=== PATIENT | female | born 1965 | race Caucasian/White ===

== ENCOUNTER → 2017-05-03 | Outpatient (CLI) | payer OTHER ==
[2017-05-03 16:04] VITALS: BP 152/77; PULSE 83; RESP 16; TEMP 97.7; BMI 39.4
[2017-05-03 18:05] LABS: HCT 46.2 % (34.0-46.0); MCH 30.4 pg (25.0-35.0); MCHC 32.6 g/dL (31.0-37.0); MCV 93.3 fL (80.0-100.0); Mean Platelet Volume 7.7; Platelet Count 331 k/uL (150-450); RBC 4.95 m/uL (3.80-5.40); RDW 14.1 % (11.5-15.5); WBC 10.1 k/uL (3.8-10.6)
[2017-05-03 18:20] LABS: ALT 33 U/L (9-52); AST 20 U/L (14-36); Albumin 4.1 g/dL (3.5-5.0); Alkaline Phosphatase 93 U/L (38-126); Anion Gap 10 mmol/L; Blood Urea Nitrogen 14 mg/dL (7-17); Carbon Dioxide 27 mmol/L (22-30); Chloride 103 mmol/L (98-107); Cholesterol 202 mg/dL (<200); Glucose 89 mg/dL (74-99); HDL Cholesterol 47 mg/dL (40-60); LDL Cholesterol,Calculated 139 mg/dL (0-99); Potassium 3.9 mmol/L (3.5-5.1); Sodium 140 mmol/L (137-145); Total Bilirubin 0.5 mg/dL (0.2-1.3); Total Protein 7.1 g/dL (6.3-8.2); Triglycerides 81 mg/dL (<150)
[2017-05-04 01:24] LABS: Iron Saturation 15.93 (12.00-45.00)
[2017-05-04 01:31] LABS: Vitamin D 25 Hydroxy 24.5 ng/mL (30.0-100.0)
[2017-05-04 01:34] LABS: Folate, Serum 16.8 ng/mL
[2017-05-04 01:48] LABS: Hemoglobin A1C 5.9 % (4.0-6.0)
--- NOTE | 2017-06-13 23:16 | P.HPBAR ---
Bariatric H&P - History & Physicial H&P Date: 05/03/17 History & Physicial: Visit/CC: bariatric consult (sleeve) Patient initial contact: Initial weight: 109.316 kg Initial weight in pounds: 241.00 Height: 5 ft 5.5 in Initial BMI: 39.4 Last weight: Current weight: 109.316 kg Current weight in pounds: 241.00 Current BMI: 39.4 [place] body weight (based on NIH guidelines): 57.833 kg Excess body weight loss: 0.0% The patient is a 51 year-old F who presents for Bariatric Assessment. DATE OF SERVICE: 05/03/2017 REASON FOR CONSULTATION: Initial bariatric evaluation. HISTORY OF PRESENT ILLNESS: HISTORY OF PRESENT ILLNESS: Nabila Austin is a 51- year-old female who comes in with history of morbid obesity. At present she is looking into the sleeve gastrectomy. At height of 5 feet and 5.5 inches, her ideal body weight is 149 pounds. She comes in weighing 240 pounds. Body mass index of 39.5. She has been undergoing medical supervised weight loss and has already lost 10 pounds. Her highest personal weight is at present. Her goal is to get down to 150 pounds. She denies any family history stomach or esophageal cancer. No family history of inflammatory bowel disease. She denies any focal ALLERGIES. No personal or family history of DVT. She still has her gallbladder. She reports as a result of obesity she has developed low back pain. She also developed hypertension. She reports minimal social support with limited family members exposed to weight loss procedures. She also reports past history of using Adipex for dieting and lost 25 pounds however regained her weight. At height of 5.5 inches, she is 240 pounds. Body mass index of 39.5. She is 91 pounds overweight. PAST MEDICAL HISTORY: 1. Morbid obesity. 2. Body mass index of 39.5 3. Osteoarthritis of the knees. 4. Osteoarthritis of the hips. 5. Osteoarthritis of the lower back. 6. Obstructive sleep apnea. 7. Hypertensive heart disease. 8. Hypothyroidism. PAST SURGICAL HISTORY: No abdominal surgeries. HOME MEDICATIONS: 1. Etodolac. 2. Levothyroxine. 3. Triamterene hydrochlorothiazide. 4. Hydrodiuril ALLERGIES: Codeine. SOCIAL HISTORY: No active tobacco use. FAMILY HISTORY: No family history of ulcerative colitis disease or Crohn's disease. Family history of morbid obesity. No lupus in the family. No reports of stomach or esophageal cancer. REVIEW OF ORGAN SYSTEMS: CONSTITUTIONAL: At height of 5.5 inches, she is 240 pounds. Body mass index of 39.5. She is 91 pounds overweight. HEENT: Denies any active troubles with vision or hearing. No troubles with swallowing. ENDOCRINE: No diabetes. Has hypothyroidism. CARDIOVASCULAR: No reports of palpitations or heart attacks or chest pain. RESPIRATORY: Has daytime somnolence. No asthma. GI: Denies any bright red blood per rectum. No diarrhea or constipation. MUSCULOSKELETAL: Has lower back pain and joint pain. Has osteoarthritis of the knees. NEURO: No headaches. No seizure disorders. PSYCH: No depression or suicidal ideation. RHEUMATOLOGIC: No lupus. No rheumatoid arthritis. HEMATOLOGIC: Denies any abnormal bleeding or bruising. No personal history of DVTs. SKIN: No rash. No skin cancer. PHYSICAL EXAM: VITAL SIGNS: Height 5 foot 5.5 inches, weight 240 pounds. BMI 39.5 Vital Signs Temp 97.7 F 05/03/17 15:44 Pulse 83 05/03/17 15:44 Resp 16 05/03/17 15:44 BP 152/77 05/03/17 15:44 Pulse Ox GENERAL: Well-developed in no acute distress. HEENT: No scleral icterus. Extraocular movements grossly intact. Hears conversational speech. No nasal drainage. NECK: Supple without lymphadenopathy. CHEST: Nonlabored respirations with equal bilateral excursions. CARDIOVASCULAR: Regular rate and regular rhythm. Distal 2+ pulses. ABDOMEN: Obese, soft, nontender, nondistended. MUSCULOSKELETAL: No clubbing, cyanosis. Gross strength 5/5 distal lower extremities. 1+ pre-tibial pitting edema. NEURO: No focal or lateralizing signs. Cranial nerves 2 through 12 grossly within normal limits. PSYCH: Appropriate affect. Alert and oriented to person, place and time. SKIN: Good skin turgor. Well perfused. ASSESSMENT: 1. Morbid obesity. 2. Body mass index of 39.5 3. Osteoarthritis of the knees. 4. Osteoarthritis of the hips. 5. Osteoarthritis of the lower back. 6. Obstructive sleep apnea. 7. Hypertensive heart disease. 8. Hypothyroidism. PLAN: 1. Surgical options including a band, gastric bypass, sleeve gastrectomy were described in detail. Alternatives such as gastric balloon including duodenal switch were described. 2. The [place] bariatric surgical collaborative data and outcomes calculator were described with surgical options. 3. Recommend a bariatric metabolic panel to evaluate for micro- including macronutrient deficiencies. 4. For history of daytime somnolence, recommend evaluation and treatment for sleep apnea. 5. Dietary surveillance and counseling was reviewed, I have asked increased protein intake to at least 75 grams daily. 6. Will need cardiac risk assessment. 7. Recommend medical risk assessment. 8. Psych assessment per insurance guidelines. 9. Follow up upon completion of upper endoscopy. 10. Recommend 12-lead EKG with history of hypertensive heart disease. 11. Recommend food diary journal with YuridiaHannah. 12. She report skipping meals. Recommend eating 3 meals a day. Thank you for this consultation. Past Medical History Past Medical History: Hypertension, Thyroid Disorder History of Any Multi-Drug Resistant Organisms: None Reported Past Surgical History: No Surgical Hx Reported Past Anesthesia/Blood Transfusion Reactions: No Reported Reaction Additional Past Anesthesia/Blood Transfusion Reaction / Comm: No hx of blood transfusion Past Psychological History: No Psychological Hx Reported Smoking Status: Never smoker Past Alcohol Use History: None Reported Past Drug Use History: None Reported - Past Family History Mother Family Medical History: Diabetes Mellitus, Renal Disease Father Family Medical History: Coronary Artery Disease (CAD) Additional Family Medical History / Comment(s): at age 78 from dementia /Alzheimers/Parkinsons. Hx of alcoholism when younger Surgical - Exam Vital Signs Temp Pulse Resp BP 97.7 F 83 16 152/77 05/03/17 15:44 05/03/17 15:44 05/03/17 15:44 05/03/17 15:44 Results - Labs 05/03/17 17:33 05/03/17 17:33 Bariatric Checklist Checklist: Plan: Checklist: EGD: 1. Hiatal hernia: 2. H. Pylori: HgbA1c: Vitamin D: Smoking: Never smoker Primary care physician referral: Wily Hurley ([place]) Psychiatry clearance: Cardiology clearance: Sleep study: Diet journal: VTE risk score: VTE risk level: Rehab needs at discharge:
== END | disposition home or self-care (01) ==
LOC: BARWHC3 14:57
PROVIDERS: ATTEND Surgery Plastic and Reconstructive Surgery
DX: Z48.815 Encounter for surgical aftercare following surgery on the digestive system (principal); E66.01 Morbid (severe) obesity due to excess calories; M17.0 Bilateral primary osteoarthritis of knee; M16.0 Bilateral primary osteoarthritis of hip; M47.816 Spondylosis without myelopathy or radiculopathy, lumbar region; G47.30 Sleep apnea, unspecified; I11.9 Hypertensive heart disease without heart failure; E03.9 Hypothyroidism, unspecified; E88.81 Metabolic syndrome and other insulin resistance; E44.0 Moderate protein-calorie malnutrition; E55.9 Vitamin D deficiency, unspecified; Z68.39 Body mass index [BMI] 39.0-39.9, adult; Z79.1 Long term (current) use of non-steroidal anti-inflammatories (NSAID); Z79.899 Other long term (current) drug therapy; Z88.5 Allergy status to narcotic agent
CPT/HCPCS: 36415; 80053; 80061; 82306; 82607; 82728; 82746; 83036; 83540; 83550; 84425; 84443; 85027; 93005; 99201

== ENCOUNTER 2020-11-04 09:48 | Emergency (ER) | payer OTHER ==
[2020-11-04 09:55] VITALS: BP 128/85; TEMP 98
[2020-11-04 10:10] VITALS: PULSE 95; RESP 16
[2020-11-04] MEDS ORDERED: IBUPROFEN 600 MG TAB PO STA (10:15)
--- NOTE | 2020-11-04 10:18 | ED ---
Fall HPI - General Chief Complaint: Fall Stated Complaint: ankle injury Time Seen by Provider: 11/04/20 10:03 Source: patient Mode of arrival: ambulatory - History of Present Illness Initial Comments: Patient is a 55-year-old female presenting to the emergency Department with complaints of right ankle pain after rolling it this morning. Patient states she stepped off her porch wrong and twisted her right ankle. She states she felt a pop. She does have history of a previous ankle fracture approximately 10 years ago, no hardware present. She did not hurt anything else in this fall, she did not hit her head. She is not on blood thinners. She has no further complaints. - Related Data Home Medications Medication Instructions Recorded Confirmed Etodolac [Lodine] 400 mg PO BID 05/04/17 05/04/17 Levothyroxine Sodium [Tirosint] 100 mcg PO DAILY 05/04/17 05/04/17 Triamterene/Hydrochlorothiazid 1 tab PO DAILY 05/04/17 05/04/17 [Triamterene-Hctz 37.5-25 mg Tb] hydroCHLOROthiazide [Hydrodiuril] 12.5 mg PO DAILY 05/04/17 05/04/17 Allergies Allergy/AdvReac Type Severity Reaction Status Date / Time codeine AdvReac Mild Unknown Verified 05/03/17 16:00 Review of Systems ROS Statement: Those systems with pertinent positive or pertinent negative responses have been documented in the HPI. ROS Other: All systems not noted in ROS Statement are negative. Past Medical History Past Medical History: Hypertension, Thyroid Disorder History of Any Multi-Drug Resistant Organisms: None Reported Past Surgical History: No Surgical Hx Reported Past Anesthesia/Blood Transfusion Reactions: No Reported Reaction Additional Past Anesthesia/Blood Transfusion Reaction / Comment(s): No hx of blood transfusion Past Psychological History: No Psychological Hx Reported Smoking Status: Former smoker Past Alcohol Use History: None Reported Past Drug Use History: None Reported - Past Family History Mother Family Medical History: Diabetes Mellitus, Renal Disease Father Family Medical History: Coronary Artery Disease (CAD) Additional Family Medical History / Comment(s): at age 78 from dementia/Alzheimers/Parkinsons. Hx of alcoholism when younger General Exam - General Exam Comments Initial Comments: GENERAL: Patient is well-developed and well-nourished. Patient is nontoxic and in no acute distress. HEAD: Atraumatic, normocephalic. EYES: Pupils equal round and reactive to light, extraocular movements intact, sclera anicteric, conjunctiva are normal. Eyelids were unremarkable. ENT: Nares patent, oropharynx clear without exudates. Moist mucous membranes. NECK: Normal range of motion, supple without lymphadenopathy or JVD. LUNGS: Unlabored respirations. Breath sounds clear to auscultation bilaterally and equal. No wheezes rales or rhonchi. HEART: Regular rate and rhythm without murmurs, rubs or gallops. ABDOMEN: Soft, nontender, normoactive bowel sounds. No guarding, no rebound. No masses appreciated. : Deferred MUSCULOSKELETAL: Patient has some moderate swelling over the right lateral malleolus, pain with palpation in this area. She is no pain of the right foot. Neurovascular intact. No pain of the right knee. No clubbing or cyanosis. NEUROLOGICAL: Patient is alert and oriented x 3. Motor and sensory are also intact. Cranial nerves II through XII grossly intact. Symmetrical smile. Normal speech. PSYCH: Normal mood, normal affect. SKIN: Warm, Dry, normal turgor, no rashes or lesions noted. Limitations: no limitations Course Vital Signs 11/04/20 09:53 Temperature 98.0 F Pulse Rate 95 Respiratory 16 Rate Blood Pressure 128/85 O2 Sat by Pulse 99 Oximetry Procedures - Orthopedic Splinting/Casting Injury #1 Side: right Lower Extremity Injury Location: ankle Lower Extremity Immobilizer: [employer] Medical Decision Making - Medical Decision Making Patient is a 55-year-old female here for right ankle pain after she twisted at this morning. She does have moderate swelling and pain over the right lateral malleolus. X-ray of the right ankle shows a possible avulsion injury of the lateral malleolus, this could be an old injury as well. She does have some soft tissue swelling, no other fractures dislocations. I discussed these findings with the patient. Patient in a stirrup splint, she will follow up with orthopedics as needed. She will continue with ice and elevation. She is in agreement this plan of care and is stable for discharge. Case discussed with Dr. Tuttle. Disposition Clinical Impression: Fall, Right ankle sprain Disposition: HOME SELF-CARE Condition: Stable Instructions (If sedation given, give patient instructions): Ankle Sprain (ED) Additional Instructions: Please return to the Emergency Department if symptoms worsen or any other concerns. Recommend wearing the splint for support, rest, ice and elevation. Follow-up with orthopedics if symptoms persist. Is patient prescribed a controlled substance at d/c from ED?: No Referrals: Wily Hurley DO [Primary Care Provider] - 1-2 days Aurelio Kaplan DO [Doctor of Osteopathic Medicine] - 1-2 days Time of Disposition: 12:02
--- NOTE | 2020-11-04 11:43 | XR ---
Right ankle HISTORY: Trauma and pain 3 views the right ankle Small ossific densities are present distal to the lateral malleolus. One shows cortication. There is soft tissue swelling. Alignment and bone mineralization are maintained. No evident dislocation. There is a plantar calcaneal spur. IMPRESSION: Correlate for point tenderness at the lateral malleolus, may be avulsion injury. Soft tis jessica swelling.
== END 2020-11-04 12:21 | disposition home or self-care (01) ==
LOC: EC 09:48
DX: S93.401A Sprain of unspecified ligament of right ankle, initial encounter (principal); I10 Essential (primary) hypertension; Z87.891 Personal history of nicotine dependence; Z88.5 Allergy status to narcotic agent; W18.30XA Fall on same level, unspecified, initial encounter; X50.1XXA Overexertion from prolonged static or awkward postures, initial encounter
CPT/HCPCS: 29515; 99284

== ENCOUNTER → 2023-01-17 | Outpatient (CLI) | payer OTHER ==
--- NOTE | 2023-01-18 10:33 | MR ---
EXAMINATION TYPE: MR lumbar spine wo con DATE OF EXAM: 01/17/2023 9:13 AM CLINICAL INDICATION:Female, 57 years old with history of M54.16 RADICULOPATHY, LUMBAR REGION; COMPARISON: None TECHNIQUE: Multi planar, multi sequence imaging was performed utilizing: T1-weighted, T2-weighted, a nd turbo inversion recovery imaging of the lumbar spine. IV Contrast: None. FINDINGS: Alignment: The lumbar vertebral bodies have preserved heights and alignment. Cord: The conus medullaris and the distal spinal cord appear unremarkable with regards to their signa l intensity and morphology. Bones/Discs: Multilevel degeneration worse at T12-L1 and L5 5 S1. There is Modic endplate changes at these levels. Scattered facet arthropathy is present. No abnormal inversion recovery signal to sugges t bony edema. T12-L1: No evidence of significant spinal canal stenosis or neural foraminal stenosis. L1-L2: No evidence of significant spinal canal stenosis or neural foraminal stenosis. L2-L3: No evidence of significant spinal canal stenosis or neural foraminal stenosis. L3-L4: No evidence of significant spinal canal stenosis or neural foraminal stenosis. L4-L5: No evidence of significant spinal canal stenosis or neural foraminal stenosis. L5-S1: The disc is rounded posterior morphology without significant spinal canal stenosis. Facet join t arthropathy with mild neural foraminal stenosis. No significant spinal canal or neural foraminal stenosis in the remainder of the visualized levels. Other findings: None. IMPRESSION: 1. No definitive evidence of disc herniation or significant spinal canal or neural foraminal stenosi s. 2. Mild disc degeneration with associated osteoarthritic changes.
== END | disposition home or self-care (01) ==
LOC: RADMRIMAIN 07:29
PROVIDERS: ATTEND Family Medicine
DX: M51.16 Intervertebral disc disorders with radiculopathy, lumbar region (principal)
CPT/HCPCS: 72148

== ENCOUNTER → 2024-02-29 | Outpatient (CLI) | payer OTHER ==
--- NOTE | 2024-02-29 10:50 | MR ---
EXAMINATION TYPE: MR knee LT wo con DATE OF EXAM: 02/29/2024 COMPARISON: None HISTORY: Lt knee pain TECHNIQUE: Multiplanar, multisequence imaging of the knee is performed without IV contrast. FINDINGS: Exam severely limited due to motion artifact. MEDIAL MENISCUS: Limited assessment due to motion. There is intrasubstance signal suspicious for line ar tear. LATERAL MENISCUS: Limited assessment with intrasubstance signal posterior horn more typical of myxoid degeneration. Subtle linear tear not excluded. CRUCIATE LIGAMENTS: The anterior and posterior cruciate ligaments are intact and unremarkable. COLLATERAL LIGAMENTS: The medial collateral ligament and lateral collateral ligament complex are inta ct and unremarkable. EXTENSOR MECHANISM: Visualized quadriceps and patellar tendons are intact. EFFUSION: Small amount of fluid in the suprapatellar bursa POPLITEAL CYST: There is a large 3.3 x 3.1 x 4.7 cm popliteal fossa cyst. TRICOMPARTMENT SPACES: Cystic changes involving the patella with intrasubstance grade I chondromalaci a. Mild narrowing of the joint space. Retinaculum intact. Changes and marrow findings likely reactive and degenerative/post arthritic. Mild narrowing of the medial compartment of the knee joint. There is no erosive changes. CARTILAGE: Limited by artifact but there appears to be localized grade 2 signal in the medial femoral articular cartilage compatible with chondromalacia. BONE MARROW SIGNAL: Area of marrow edema or contusion involving the medial posterior femoral condyle and condyle which could represent an area of marrow contusion. Osteochondritis not excluded. Addition al cystic changes are seen along the anterior margin of the distal medial femur. IMPRESSION: 1. Limited exam due to motion artifact. There is a large popliteal fossa cyst measuring 3.3 x 3.1 x 4 .7 cm. 2. Findings are suggestive of osteoarthritis with areas of chondromalacia as discussed above most mar ked involving the medial compartment and patellofemoral joint. Trace amount of fluid within the supra patellar bursa. 3. Assessment of the menisci are limited due to motion. Suspicion for a linear tear posterior horn me dial meniscus. 4. No gross ligamentous injury. 5. Marrow edema involving the medial distal femur and femoral condyle most likely is reactive. A comp onent of osteochondritis dissecans is not excluded. [facility], , 02/29/2024 10:48 AM
== END | disposition home or self-care (01) ==
LOC: RADMRIMAIN 09:18
PROVIDERS: ATTEND Orthopaedic Surgery

== ENCOUNTER 2024-03-21 12:58 | Day surgery (SDC) | payer OTHER ==
[2024-03-21 13:41] VITALS: RESP 16; TEMP 98.1
[2024-03-21] MEDS: TRIAMCINOLONE ACETONIDE 40 MG/ML 1 ML VIAL INTRABURSA STA (14:07)
[2024-03-21 14:12] VITALS: BP 104/77; PULSE 74
--- NOTE | 2024-03-22 08:24 | US ---
Ultrasound-guided therapeutic and diagnostic thoracentesis DATE OF EXAM: 03/21/2024 CLINICAL HISTORY: Popliteal cyst. The procedure was discussed with the patient. The risks, complications, benefits, and alternatives we re discussed and any questions were answered. Informed consent was obtained. The patient was placed bone on the ultrasound table and prepped and draped in the usual sterile fashi on. All elements of maximal barrier and sterile technique were utilized. Under ultrasound guidance, access into the Left popliteal fossa cyst was achieved. Aspiration of approximately 10 cc of yellow serous fluid. Ins tillation of requested steroid solution as requested by referring physician. The patient was stable t hroughout the procedure and remained stable upon discharge from Department of Radiology. IMPRESSION: 1. Successful sono guided popliteal fossa cyst aspiration with the steroid solution installation.. [facility], , 03/22/2024 8:22 AM
== END 2024-03-21 14:20 | disposition home or self-care (01) ==
LOC: RADPROMAIN 12:58
PROVIDERS: ATTEND Orthopaedic Surgery
DX: M71.22 Synovial cyst of popliteal space [Baker], left knee (principal)
CPT/HCPCS: 20611; J3301

== ENCOUNTER 2024-05-30 08:34 | Emergency (ER) | payer OTHER ==
--- NOTE | 2024-05-30 08:44 | ED ---
General Adult HPI - General Chief complaint: Abdominal Pain Stated complaint: Side pain Time Seen by Provider: 05/30/24 08:44 Source: patient, RN notes reviewed Mode of arrival: ambulatory Limitations: no limitations - History of Present Illness Initial comments: This is a 58-year-old female history of hypertension presenting to the emergency department chief complaint of right-sided abdominal pain over the past week and a half. States that over the past few days she has had persistent right upper quadrant abdominal pain with radiation to her back in addition to right flank pain. She denies hematuria, dysuria, increased urinary frequency or urgency, nausea, vomiting, diarrhea, constipation, vaginal bleeding or discharge. Denies previous surgical abdominal history. Patient states that she is scheduled for an outpatient ultrasound of her abdomen next week however presents for further evaluation of persistent right upper quadrant abdominal pain. She denies chest pain, shortness of breath, heart palpitations, dizziness, lightheadedness, fevers or chills. - Related Data Home Medications Medication Instructions Recorded Confirmed Triamterene/Hydrochlorothiazid 1 tab PO DAILY 05/04/17 05/30/24 [Triamterene-Hctz 37.5-25 mg Tb] Levothyroxine Sodium [Synthroid] 112 mcg PO DAILY 05/30/24 05/30/24 Pantoprazole [Protonix] 40 mg PO DAILY 05/30/24 05/30/24 Previous Rx's Medication Instructions Recorded Ciprofloxacin HCl [Cipro] 500 mg PO Q12HR #20 tablet 05/30/24 Allergies Allergy/AdvReac Type Severity Reaction Status Date / Time codeine AdvReac Mild Makes her Verified 05/30/24 10:51 feel "off" Review of Systems ROS Statement: Those systems with pertinent positive or pertinent negative responses have been documented in the HPI. ROS Other: All systems not noted in ROS Statement are negative. Past Medical History Past Medical History: Hypertension, Thyroid Disorder History of Any Multi-Drug Resistant Organisms: None Reported Past Surgical History: No Surgical Hx Reported Past Anesthesia/Blood Transfusion Reactions: No Reported Reaction Additional Past Anesthesia/Blood Transfusion Reaction / Comment(s): No hx of blood transfusion Past Psychological History: No Psychological Hx Reported Smoking Status: Never smoker Past Alcohol Use History: None Reported Past Drug Use History: None Reported - Past Family History Mother Family Medical History: Diabetes Mellitus, Renal Disease Father Family Medical History: Coronary Artery Disease (CAD) Additional Family Medical History / Comment(s): at age 78 from dementia/Alzheimers/Parkinsons. Hx of alcoholism when younger General Exam Limitations: no limitations ENT exam: Present: normal exam, mucous membranes moist Neck exam: Present: normal inspection. Absent: tenderness, meningismus, lymphadenopathy Respiratory exam: Present: normal lung sounds bilaterally. Absent: respiratory distress, wheezes, rales, rhonchi, stridor Cardiovascular Exam: Present: regular rate, normal rhythm, normal heart sounds. Absent: systolic murmur, diastolic murmur, rubs, gallop, clicks GI/Abdominal exam: Present: soft, tenderness (RUQ), normal bowel sounds. Ab sent: distended, guarding, rebound, rigid Extremities exam: Present: normal inspection, full ROM, normal capillary refill. Absent: tenderness, pedal edema, joint swelling, calf tenderness Back exam: Present: normal inspection, full ROM, CVA tenderness (R). Absent: CVA tenderness (L) Skin exam: Present: warm, dry, intact, normal color. Absent: rash Course Vital Signs 05/30/24 05/30/24 05/30/24 08:38 09:44 11:50 Temperature 97.5 F L 97.6 F 98.6 F Pulse Rate 81 68 85 Respiratory 20 16 18 Rate Blood Pressure 156/84 137/79 137/69 O2 Sat by Pulse 97 95 95 Oximetry Medical Decision Making - Medical Decision Making Was pt. sent in by a medical professional or institution (, PA, WAREHOUSE ATTENDANT, urgent care, hospital, or retirement...) When possible be specific @ -No Did you speak to anyone other than the patient for history (EMS, parent, family, police, friend...)? What history was obtained from this source @ -No Did you review nursing and triage notes (agree or disagree)? Why? @ -I reviewed and agree with nursing and triage notes Were old charts reviewed (outside hosp., previous admission, EMS record, old EKG, old radiological studies, urgent care reports/EKG's, retirement records)? Report findings @ -No old charts were reviewed Differential Diagnosis (chest pain, altered mental status, abdominal pain women, abdominal pain men, vaginal bleeding, weakness, fever, dyspnea, syncope, headac he, dizziness, GI bleed, back pain, seizure, CVA, palpatations, mental health, musculoskeletal)? @ -Differential Abdominal Pain Women: Appendicitis, Cholecystitis, diverticulosis, ischemic bowel, pancreatitis, hepatitis, UTI, gastroenteritis, AAA, incarcerated hernia, bowel obstruction, constipation, inflammatory bowel, hepatitis, peptic ulcer disease, splenic infarction, perforated viscus, vulvitis, ovarian torsion, PID, kidney stone, placenta abruption, this is not meant to be an all-inclusive list EKG interpreted by me (3pts min.). @ -none X-rays interpreted by me (1pt min.). @ -None done CT interpreted by me (1pt min.). @ -None done U/S interpreted by me (1pt. min.). @ -Ultrasound of the gallbladder unremarkable for acute process with a gallbladder wall polyp versus adherent stone measuring up to 6 mm with recommended follow-up in 6 months to ensure stability What testing was considered but not performed or refused? (CT, X-rays, U/S, labs)? Why? @ -None What meds were considered but not given or refused? Why? @ -None Did you discuss the management of the patient with other professionals (professionals i.e. , PA, WAREHOUSE ATTENDANT, lab, RT, psych nurse, social media sr strategy manager, maintenance and repair worker, teacher, business enterprise officer, immigration case manager)? Give summary @ -No Was smoking cessation discussed for >3mins.? @ -No Was critical care preformed (if so, how long)? @ -No Were there social determinants of health that impacted care today? How? (Homelessness, low income, unemployed, alcoholism, drug addiction, transportation, low edu. Level, literacy, decrease access to med. care, detention, rehab)? @ -No Was there de-escalation of care discussed even if they declined (Discuss DNR or withdrawal of care, Hospice)? DNR status @ -No What co-morbidities impacted this encounter? (DM, HTN, Smoking, COPD, CAD, Cancer, CVA, ARF, Chemo, Hep., AIDS, mental health diagnosis, sleep apnea, morbid obesity)? @ -None Was patient admitted / discharged? Hospital course, mention meds given and route, prescriptions, significant lab abnormalities, going to OR and other pertinent info. @ -Discharge. 58-year-old female presenting with right upper quadrant [place] pain and right flank pain. Vitals are stable. Physical exam markable for right flank pain and right upper quadrant abdominal pain on palpation. She is provided with an fluids pending laboratory results and ultrasound concern for possible cholecystitis CBC and CMP unremarkable. Patient's urinalysis remarkable for infection including positive nitrates, low 176 with symptoms, leukocyte esterase moderate bacteria. Patient's urine sent for culture. She is provided with dose of Rocephin emergency department prescription for ciproflox acin sent to the pharmacy. Recommend patient follow-up with primary care provider and for completion from check urinalysis. Ultrasound unremarkable for acute cholecystitis however evidence of 6 mm polyp versus stone and advised patient have repeat ultrasound in 6 months to ensure resolution. Case discussed with Dr. Milan Undiagnosed new problem with uncertain prognosis? @ -No Drug Therapy requiring intensive monitoring for toxicity (Heparin, Nitro, Insulin, Cardizem)? @ -No Were any procedures done? @ -No Diagnosis/symptom? @ -Pyelonephritis Acute, or Chronic, or Acute on Chronic? @ -acute Uncomplicated (without systemic symptoms) or Complicated (systemic symptoms)? @ -uncomplicated Side effects of treatment? @ -No Exacerbation, Progression, or Severe Exacerbation? @ -No Poses a threat to life or bodily function? How? (Chest pain, [place], [place], pneumonia, PE, COPD, DKA, ARF, appy, cholecystitis, CVA, Diverticulitis, Homicidal, Suicidal, threat to staff... and all critical care pts) @ -No - Lab Data Result diagrams: 05/30/24 09:44 05/30/24 09:44 Lab Results 05/30/24 05/30/24 05/30/24 Range/Units 09:44 09:44 11:25 WBC 11.0 H (3.8-10.6) k/uL RBC 4.67 (3.80-5.40) m/uL Hgb 14.4 (11.4-16.0) gm/dL Hct 43.2 (34.0-46.0) % MCV 92.4 (80.0-100.0) fL MCH 30.9 (25.0-35.0) pg MCHC 33.4 (31.0-37.0) g/dL RDW 12.6 (11.5-15.5) % Plt Count 360 (150-450) k/uL MPV 7.6 Neutrophils % 70 % Lymphocytes % 20 % Monocytes % 6 % Eosinophils % 3 % Basophils % 0 % Neutrophils # 7.7 (1.3-7.7) k/uL Lymphocytes # 2.2 (1.0-4.8) k/uL Monocytes # 0.6 (0-1.0) k/uL Eosinophils # 0.4 (0-0.7) k/uL Basophils # 0.0 (0-0.2) k/uL Sodium 139 (137-145) mmol/L Potassium 3.5 (3.5-5.1) mmol/L Chloride 101 (98-107) mmol/L Carbon Dioxide 31 H (22-30) mmol/L Anion Gap 7 mmol/L BUN 15 (7-17) mg/dL Creatinine 0.80 (0.52-1.04) mg/dL Est GFR (CKD-EPI)AfAm >90 (>60 ml/min/1.73 sqM) Est GFR (CKD-EPI)NonAf 82 (>60 ml/min/1.73 sqM) Glucose 121 H (74-99) mg/dL Calcium 10.0 (8.4-10.2) mg/dL Total Bilirubin 0.8 (0.2-1.3) mg/dL AST 30 (14-36) U/L ALT 28 (4-34) U/L Alkaline Phosphatase 102 (38-126) U/L Total Protein 7.0 (6.3-8.2) g/dL Albumin 4.0 (3.5-5.0) g/dL Amylase 54 (30-110) U/L Lipase 35 (23-300) U/L Urine Color Light Yellow Urine Appearance Cloudy H (Clear) Urine pH 5.5 (5.0-8.0) Ur Specific [place] 1.017 (1.001-1.035) Urine Protein Trace H (Negative) Urine Glucose (UA) Negative (Negative) Urine Ketones Negative (Negative) Urine Blood Trace H (Negative) Urine Nitrite Positive H (Negative) Urine Bilirubin Negative (Negative) Urine Urobilinogen <2.0 (<2.0) mg/dL Ur Leukocyte Esterase Large H (Negative) Urine RBC 16 H (0-5) /hpf Urine WBC 176 H (0-5) /hpf Ur Squamous Epith Cells 2 (0-4) /hpf Urine Bacteria Moderate H (None) /hpf Urine Mucus Rare H (None) /hpf Disposition Clinical Impression: Pyelonephritis Disposition: HOME SELF-CARE Condition: Good Instructions (If sedation given, give patient instructions): Kidney Infection (ED) Additional Instructions: Please return to the Emergency Department if symptoms worsen or any other concerns. Complete full course of antibiotics as prescribed. Recommend follow- up with primary care provider after medications have been finished for a repeat urinalysis. Prescriptions: Ciprofloxacin HCl [Cipro] 500 mg PO Q12HR #20 tablet Is patient prescribed a controlled substance at d/c from ED?: No Referrals: Wily Hurley DO [Primary Care Provider] - 1-2 days Time of Disposition: 12:58
[2024-05-30] MEDS: SODIUM CHLORIDE 0.9% 1,000 ML IV STA (09:37)
[2024-05-30] MEDS: KETOROLAC 15 MG/ML 1 ML VIAL IVP STA (09:38)
[2024-05-30 10:02] LABS: Basophils % (A) 0 %; Eosinophils # (A) 0.4 k/uL (0-0.7); Eosinophils % (A) 3 %; HCT 43.2 % (34.0-46.0); HGB 14.4 gm/dL (11.4-16.0); Lymphocytes # (A) 2.2 k/uL (1.0-4.8); Lymphocytes % (A) 20 %; MCH 30.9 pg (25.0-35.0); MCHC 33.4 g/dL (31.0-37.0); MCV 92.4 fL (80.0-100.0); Mean Platelet Volume 7.6; Monocytes # (A) 0.6 k/uL (0-1.0); Monocytes % (A) 6 %; Neutrophils # (A) 7.7 k/uL (1.3-7.7); Neutrophils % (A) 70 %; Platelet Count 360 k/uL (150-450); RBC 4.67 m/uL (3.80-5.40); RDW 12.6 % (11.5-15.5)
[2024-05-30 10:13] LABS: ALT 28 U/L (4-34); African American GFR (CKD) >90 (>60 ml/min/1.73 sqM); Amylase 54 U/L (30-110); Anion Gap 7 mmol/L; Blood Urea Nitrogen 15 mg/dL (7-17); Carbon Dioxide 31 mmol/L (22-30); Chloride 101 mmol/L (98-107); Glucose 121 mg/dL (74-99); Lipase 35 U/L (23-300); Non-African American GFR(CKD) 82 (>60 ml/min/1.73 sqM); Sodium 139 mmol/L (137-145); Total Bilirubin 0.8 mg/dL (0.2-1.3)
[2024-05-30 10:26] LABS: AST 30 U/L (14-36); Potassium 3.5 mmol/L (3.5-5.1)
[2024-05-30 10:27] LABS: Alkaline Phosphatase 102 U/L (38-126)
--- NOTE | 2024-05-30 10:34 | US ---
EXAMINATION TYPE: US gallbladder DATE OF EXAM: 05/30/2024 COMPARISON: NONE CLINICAL INDICATION: Female, 58 years old with history of RUQ ab pain w/ radiation into back; ongoing right sided pain TECHNIQUE: Grayscale and color Doppler imaging of the right upper quadrant was performed. FINDINGS: EXAM MEASUREMENTS: Liver Length: 22. cm Gallbladder Wall: 0.3 cm CBD: 0.6 cm Right Kidney: 10.2 x 4.9 x 4.9 cm DIVER ASSISTANT NOTES:habitus and bowel gas limits exam Pancreas: limited visibility Liver: difficult to penetrate, enlarged Gallbladder: possible polyp versus non-shadowing stone measuring up to 6 cm. Evidence for sonographic Mason's sign: no CBD: wnl Right Kidney: wnl IMPRESSION: 1. No evidence for acute process. 2. Gallbladder wall polyp versus adherent stone measuring up to 6 mm short-term follow-up in 6 month s recommended to ensure stability. 3. Hepatic steatosis. [facility], , 05/30/2024 10:31 AM
[2024-05-30 11:49] LABS: Appearance,Urine Cloudy (Clear); Bacteria,Urine Moderate /hpf; Bilirubin,Urine Negative (Negative); Blood,Urine Trace (Negative); Color,Urine Light Yellow; Glucose,Urine (UA) Negative (Negative); Ketones,Urine Negative (Negative); Leukocyte Esterase,Urine Large (Negative); Mucus,Urine Rare /hpf; Nitrite,Urine Positive (Negative); PH, Urine 5.5 (5.0-8.0); Protein,Urine Trace (Negative); RBC,Urine 16 /hpf (0-5); Specific Gravity,Urine 1.017 (1.001-1.035); Squamous Epithelial Cell,Urine 2 /hpf (0-4); Urobilinogen,Urine <2.0 mg/dL (<2.0); WBC,Urine 176 /hpf (0-5)
[2024-05-30] MEDS: cefTRIAXone IN SWFI 1,000 MG/10 ML SYRINGE IVP STA (13:25)
[2024-05-30 13:31] VITALS: BP 119/63; PULSE 63; RESP 15; TEMP 98.5
== END 2024-05-30 13:51 | disposition home or self-care (01) ==
LOC: EC 08:34
DX: N12 Tubulo-interstitial nephritis, not specified as acute or chronic (principal); Z88.5 Allergy status to narcotic agent
CPT/HCPCS: 36415; 80053; 82150; 83690; 85025; 81001; 87086; 76705; 99284; 96374; 96375; 96361; J0696; J1885

== ENCOUNTER → 2024-06-06 | Outpatient (CLI) | payer OTHER ==
--- NOTE | 2024-06-06 10:05 | US ---
EXAMINATION TYPE: US abdomen complete DATE OF EXAM: 06/06/2024 COMPARISON: 05/30/2024 CLINICAL INDICATION: Female, 58 years old with history of R10.10 UPPER ABDOMINAL PAIN, UNSPECIFIED; e pigastric pain/burning sensation x several weeks, recent ER visit for RUQ pain TECHNIQUE: Grayscale and color Doppler imaging of the abdomen was performed. FINDINGS: EXAM MEASUREMENTS: Liver Length: 21.6 cm Gallbladder Wall: 0.1 cm CBD: 0.2 cm, color Doppler imaging was utilized to isolate the common bile duct for measurement. Spleen: 9.0 cm Right Kidney: 9.5x4.2x4.9 cm Left Kidney: 9.8x5.3x4.9 cm .NET PROGRAMMER NOTES: Pancreas: Echogenic, Tail obscured by overlying bowel gas Liver: increased echogenicity, attenuation and size, no dilated ducts, masses or cysts. Gallbladder: likely polyp again seen from 05/30/24 US Evidence for sonographic Mason's sign: No CBD: wnl Spleen: wnl Right Kidney: wnl, No hydronephrosis, calculi or masses seen Left Kidney: wnl, No hydronephrosis, calculi or masses seen Upper IVC: wnl Abd Aorta: wnl exam limited by habitus and bowel gas The liver is homogenous. The intrahepatic portion of the IVC and proximal abdominal aorta are within normal limits. Common bile duct is unremarkable. The visualized portions of the pancreas are homog enous. The spleen is unremarkable. Kidneys are symmetric and free of hydronephrosis. No renal lesi ons are seen. IMPRESSION: 1. No evidence for acute process. 2. Hepatic steatosis. 3. Gallbladder polyp remains present measuring up to 5 mm. [facility], , 06/06/2024 10:03 AM
== END | disposition home or self-care (01) ==
LOC: RADUSWWP 09:07
PROVIDERS: ATTEND Family Medicine
DX: K76.89 Other specified diseases of liver (principal); K82.4 Cholesterolosis of gallbladder
CPT/HCPCS: 76700